=== PATIENT | female | born 1975 | race Caucasian/White ===

== ENCOUNTER 2020-02-29 19:50 | Inpatient (IN) | payer OTHER ==
[~2020-02-29] VITALS: Ht 175.3 cm; Wt 177.0 kg
[2020-02-29 23:35] VITALS: BP 141/75
[2020-02-29] MEDS ORDERED: SODIUM CHLORIDE 0.9% 1,000 ML IV SCH (23:58)
[2020-03-01] MEDS ORDERED: KETOROLAC 30 MG/1 ML IV PRN
[2020-03-01] MEDS ORDERED: DOCUSATE 100 MG CAPSULE PO PRN
[2020-03-01] MEDS ORDERED: PLEASE ENTER ALLERGIES MC SCH (00:30)
[2020-03-01 00:49] VITALS: BP 106/71
[2020-03-01] MEDS ORDERED: CEFTRIAXONE PMX 1GM/50ML 50 ML IV SCH (01:00)
[2020-03-01] MEDS: HYDROcodone/APAP 5/325 TABLET PO PRN ×3 (01:16→19:21)
[2020-03-01 05:42] LABS: BASOPHILS # (AUTO) 0.04 x10^3/uL (0-0.1); BASOPHILS % (AUTO) 1 % (0-1); EOSINOPHILS # (AUTO) 0.35 x10^3/uL (0-0.4); EOSINOPHILS % (AUTO) 6 % (1-7); LYMPHOCYTES # (AUTO) 2.14 x10^3/uL (1-3.4); LYMPHOCYTES % (AUTO) 39 % (22-44); MD NO; MEAN CORPUSCULAR HEMOGLOBIN 30.4 pg (27.0-34.8); MEAN CORPUSCULAR HGB CONC 33.6 g/dL (32.4-35.8); MEAN PLATELET VOLUME 8.8 fL (7.4-10.4); MONOCYTES # (AUTO) 0.42 x10^3/uL (0.2-0.8); MONOCYTES % (AUTO) 8 % (2-9); NEUTROPHILS # (AUTO) 2.59 x10^3/uL (1.8-6.8); NEUTROPHILS % (AUTO) 47 % (42-75); PLATELET COUNT 210 x10^3/uL (130-400); RED BLOOD COUNT 4.06 x10^6/uL (3.82-5.3); RED CELL DISTRIBUTION WIDTH 13.7 % (9.6-15.2)
[2020-03-01 05:42] LABS: ANION GAP 5 mmol/L (5-15); CALCIUM 8.9 mg/dL (8.5-10.1); CHLORIDE 109 mmol/L (98-107)
[2020-03-01] MEDS: HEPARIN 5,000 UNITS/ML, 1ML SQ SCH ×2 (05:52→13:00)
[2020-03-01 06:44] VITALS: BP 111/73
[2020-03-01] MEDS ORDERED: TAMSULOSIN 0.4 MG CAP.ER.24H PO SCH (09:00)
[2020-03-01 12:23] VITALS: BP 123/77
[2020-03-01 13:30] LABS: HCG UR SG 1.015 (1.003-1.030)
[2020-03-01] MEDS ORDERED: CHLORHEXIDINE 15 ML UDC MM STA (14:03)
[2020-03-01] MEDS ORDERED: CHLORHEXIDINE 15 ML UDC MM ONE (14:30)
[2020-03-01] MEDS ORDERED: CEFD300C37 PO (14:31)
[2020-03-01] MEDS ORDERED: TAMS-11 PO (14:31)
[2020-03-01] MEDS ORDERED: FENTANYL PF 100 MCG/2ML ONE ×2 (15:27→16:31)
[2020-03-01] MEDS ORDERED: LIDOCAINE 1%, 20ML ONE (16:01)
[2020-03-01] MEDS ORDERED: SUCCINYLCHOLINE 20 MG/ML, 10ML ONE (16:01)
[2020-03-01] MEDS ORDERED: MEPERIDINE/PF 25MG/0.5ML IVPush PRN (16:30)
[2020-03-01] MEDS ORDERED: PROMETHAZINE 25 MG/ML, 1ML IVPush PRN (16:30)
[2020-03-01] MEDS ORDERED: OXYcodone 5 MG/5 ML ORAL.SOL UDC PO PRN (16:30)
[2020-03-01] MEDS ORDERED: FENTANYL PF 100 MCG/2ML IV PRN (16:30)
[2020-03-01] MEDS ORDERED: ACETAMINOPHEN 325 MG TABLET PO PRN ×2 (16:30)
[2020-03-01] MEDS ORDERED: ALBUTEROL SULFATE 2.5 MG/3 ML NPPB PRN (16:30)
[2020-03-01] MEDS ORDERED: hydrALAzine 20 MG/ML, 1ML IV PRN (16:30)
[2020-03-01] MEDS ORDERED: ONDANSETRON 2MG/ML, 2ML ONE (16:52)
[2020-03-01] MEDS ORDERED: DEXAMETHASONE 4 MG/ML, 1ML ONE (16:52)
[2020-03-01] MEDS ORDERED: PROPOFOL 10 MG/ML, 20ML ONE (16:52)
[2020-03-01] MEDS ORDERED: PHENAZOPYRIDINE 200 MG TABLET PO PRN (17:00)
== END 2020-03-01 19:50 | disposition home or self-care (01) | DRG 660 ==
LOC: 3N 23:25 → 4NE 03-01 18:01
PROVIDERS: ADMIT Family Medicine; ATTEND Internal Medicine
PROC: 0TC68ZZ Extirpation of Matter from Right Ureter, Via Natural or Artificial Opening Endoscopic (ICD-10-PCS; 2020-03-01)
PROC: BT1D1ZZ Fluoroscopy of Right Kidney, Ureter and Bladder using Low Osmolar Contrast (ICD-10-PCS; 2020-03-01)
PROC: 0T768DZ Dilation of Right Ureter with Intraluminal Device, Via Natural or Artificial Opening Endoscopic (ICD-10-PCS; principal; 2020-03-01 15:00)
DX: N13.6 Pyonephrosis (principal); Z68.43 Body mass index [BMI] 50.0-59.9, adult; E66.01 Morbid (severe) obesity due to excess calories; I11.0 Hypertensive heart disease with heart failure; F17.200 Nicotine dependence, unspecified, uncomplicated; Z20.828 Contact with and (suspected) exposure to other viral communicable diseases; I50.9 Heart failure, unspecified; Z88.2 Allergy status to sulfonamides; Z88.8 Allergy status to other drugs, medicaments and biological substances; Z90.49 Acquired absence of other specified parts of digestive tract
CPT/HCPCS: 36415; 74420; 80048; 81025; 82360; 85025; 87635; 88300; G0378; J0696; J1100; J1644; J1885; J2405; J2704; J3010; C2617; J0330; J7030